=== PATIENT | female | born 2000 | race Caucasian/White ===

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

== ENCOUNTER 2019-02-07 11:50 | Emergency (ER) | payer OTHER ==
[~2019-02-07] VITALS: Ht 167.6 cm; Wt 71.9 kg
[~2019-02-07 11:50] MED LIST changes: +AZIT500T2 PO; +DEPO40IN IM; +MACR100C43 PO; -METHACHOLINE KIT (J7674) INH; +PYRI1TAB5 PO
[2019-02-07] MEDS ORDERED: PREN1TAB14 (12:15)
[2019-02-07 13:41] LABS: BASO # 0.1 10^3/uL (0.0-0.2); BASO % 0.7 % (0.0-1.0); EOS # 0.1 10^3/uL (0.0-0.50); EOS % 1.4 % (0.0-3.0); HEMATOCRIT 38.6 % (36.0-47.0); HEMOGLOBIN 12.9 g/dl (12.0-15.5); LYMPH # 2.8 10^3/uL (1.5-6.5); LYMPH % 31.3 % (24.0-44.0); MEAN CORPUSCULAR HEMOGLOBIN 30.3 pg (27.0-33.0); MEAN CORPUSCULAR HGB CONC 33.4 g/dl (32.0-36.5); MEAN CORPUSCULAR VOLUME 90.6 fl (80.0-96.0); MONO # 0.7 10^3/uL (0.0-0.8); MONO % 7.7 % (0.0-5.0); NEUTROPHILS # 5.2 10^3/uL (1.8-7.7); NEUTROPHILS % 58.7 % (36.0-66.0); PLATELET COUNT, AUTOMATED 315 10^3/uL (150-450); RED BLOOD COUNT 4.26 10^6/uL (4.00-5.40); WHITE BLOOD COUNT 8.8 10^3/uL (4.0-10.0)
[2019-02-07 13:58] LABS: BLOOD UREA NITROGEN 7 MG/DL (7-18); CALCIUM LEVEL 8.7 MG/DL (8.5-10.1); CARBON DIOXIDE LEVEL 26 MEQ/L (21-32); CHLORIDE LEVEL 107 MEQ/L (98-107); CREATININE FOR GFR 0.72 MG/DL (0.55-1.30); GLUCOSE, FASTING 74 MG/DL (70-100); POTASSIUM SERUM 3.9 MEQ/L (3.5-5.1); SODIUM LEVEL 140 MEQ/L (136-145)
--- NOTE | 2019-02-07 16:01 | REP ---
Pelvic ultrasound including transabdominal, endovaginal and Doppler ultrasound assessment for pelvic pain/bleeding: The uterus is anteverted and normal size measuring 8.4-0.8 x 4.7 cm. The endometrium is not thickened measuring 8.3 mm in the fundus and 12.6 mm and the body of the uterus. The increased in the body of the uterus may represent endometrial polyp/clot. There is no intrauterine gestational sac. Right ovary: There is a 1.5 cm hemorrhagic cyst. Including the cyst the right ovary is normal size measuring 3.1 x 2.4 x 2.0 cm. With Doppler assessment there is vascular flow in the parenchymal arteries, the Doppler resistive index measures 0.47. Left ovary: There is a 10.2 x 3.3 x 4.4 mm paraovarian cyst. Including the cyst the left ovary is normal size measuring 3.2 x 1.6 x 2.4 cm. With Doppler assessment there is vascular flow in the parenchymal arteries, the Doppler resistive index measures 0.50. Impression: There is no intrauterine gestation. There is focal thickening of the endometrium in the uterine body, likely clock. There are bilateral adnexal cysts as described. No free fluid in the pelvis. The Electronically Signed by Gil Luong MD 02/07/2019 03:53 P
[2019-02-07 16:09] VITALS: BP 128/71
[2019-02-07] MEDS ORDERED: KEFL500C17 PO (16:47)
== END 2019-02-07 16:50 | disposition home or self-care (01) ==
LOC: M ED 11:50
DX: O20.0 Threatened abortion (principal); O23.11 Infections of bladder in pregnancy, first trimester; O34.81 Maternal care for other abnormalities of pelvic organs, first trimester; Z79.899 Other long term (current) drug therapy

== ENCOUNTER 2019-03-06 21:11 | Emergency (ER) | payer OTHER ==
[~2019-03-06] VITALS: Ht 167.6 cm; Wt 64.5 kg
[~2019-03-06 21:11] MED LIST changes: +KEFL500C17 PO; +PREN1TAB14
[2019-03-06 21:30] LABS: URINE PREG TEST NEGATIVE (NEGATIVE)
[2019-03-06 21:38] LABS: APPEARANCE, URINE CLEAR (CLEAR); BACTERIA, URINE AUTO NEGATIVE (NEGATIVE); BILIRUBIN, URINE AUTO NEGATIVE (NEGATIVE); BLOOD, URINE BLOOD NEGATIVE (NEGATIVE); COLOR, URINE YELLOW (YELLOW); GLUCOSE, URINE (UA) AUTO NEGATIVE (NEGATIVE); KETONE, URINE AUTO NEGATIVE (NEGATIVE); LEUKOCYTE ESTERASE, URINE AUTO NEGATIVE (NEGATIVE); MUCUS, URINE SMALL (NEGATIVE); NITRITE, URINE AUTO NEGATIVE (NEGATIVE); PROTEIN, URINE AUTO NEGATIVE (NEGATIVE); RBC, URINE AUTO 0 /HPF (0-3); SPECIFIC GRAVITY URINE AUTO 1.014 (1.002-1.035); SQUAMOUS EPITHELIAL CELL UR AU 1 /HPF (0-6); WBC, URINE AUTO 1 /HPF (0-3)
[2019-03-07] MEDS ORDERED: cefTRIAXone SOD 250 MG VIAL (J0696) IM ONE (01:45)
[2019-03-07] MEDS ORDERED: LIDOCAINE 1% SDV 5 ML VIAL DILUENT ONE (01:45)
[2019-03-07] MEDS ORDERED: AZITHROMYCIN 250 MG TAB PO ONE (01:45)
[2019-03-07] MEDS ORDERED: FLAG500T PO (02:20)
[2019-03-07 02:24] VITALS: BP 111/69
[2019-03-07 03:29] LABS: CHLAMYDIA DNA AMPLIFICATION NEGATIVE (NEGATIVE); GC DNA AMPLIFICATION NEGATIVE (NEGATIVE)
== END 2019-03-07 02:32 | disposition home or self-care (01) ==
LOC: M ED 21:11
DX: Z20.2 Contact with and (suspected) exposure to infections with a predominantly sexual mode of transmission (principal); N76.0 Acute vaginitis; J02.8 Acute pharyngitis due to other specified organisms; R07.0 Pain in throat; Z86.19 Personal history of other infectious and parasitic diseases; J45.909 Unspecified asthma, uncomplicated; Z79.3 Long term (current) use of hormonal contraceptives; Z72.0 Tobacco use
CPT/HCPCS: 81001; 84703; 87210; 87252; 87661; 87880; 96372; 99284; J0696

== ENCOUNTER 2019-04-06 20:35 | Emergency (ER) | payer OTHER ==
[~2019-04-06] VITALS: Ht 167.6 cm; Wt 64.5 kg
[2019-04-06 20:35] VITALS: BP 117/71
[~2019-04-06 20:35] MED LIST changes: +FLAG500T PO
== END 2019-04-06 21:22 | disposition left against medical advice (07) ==
LOC: M ED 20:35
DX: Z53.29 Procedure and treatment not carried out because of patient's decision for other reasons (principal)

== ENCOUNTER 2019-05-31 10:09 | Emergency (ER) | payer OTHER ==
[~2019-05-31] VITALS: Ht 167.6 cm; Wt 61.8 kg
[2019-05-31 10:09] VITALS: BP 113/66
[2019-05-31] MEDS ORDERED: BCP (10:14)
[2019-06-04] MEDS ORDERED: AMOX500C PO (10:21)
== END 2019-05-31 10:59 | disposition home or self-care (01) ==
LOC: M ED 10:09
DX: J03.90 Acute tonsillitis, unspecified (principal); J45.909 Unspecified asthma, uncomplicated; Z79.3 Long term (current) use of hormonal contraceptives

== ENCOUNTER → 2019-06-11 | Outpatient (CLI) | payer OTHER ==
[~2019-06-11] MED LIST changes: +AMOX500C PO; -AZIT500T2 PO; +AZIT500T5 PO; +BCP
--- NOTE | 2019-06-12 03:26 | REP ---
Clinical: Asthma . Comparison: None . Technique: PA and lateral. Findings: The mediastinum and cardiac silhouette are normal. The lung johnson are clear and without acute consolidation, effusion, or pneumothorax. The skeletal structures are intact and normal. Impression: 1. No acute cardiopulmonary process. Electronically Signed by Ted Morales MD 06/12/2019 03:18 A
== END ==
LOC: M SMT 11:09
PROVIDERS: ATTEND Physician Assistant
DX: J45.20 Mild intermittent asthma, uncomplicated (principal)